=== PATIENT | male | born 1985 | race Caucasian/White ===

== ENCOUNTER 2025-02-21 14:38 | Outpatient (CLI) | payer OTHER, SELFPAY | END 2025-02-21 14:39 | disposition home or self-care (01) | LOC: LKVREF 14:41 | PROVIDERS: PCP Family Medicine; Visit Provider Family Medicine | DX: Z00.00 Encounter for general adult medical examination without abnormal findings (principal); R03.0 Elevated blood-pressure reading, without diagnosis of hypertension; E78.00 Pure hypercholesterolemia, unspecified | CPT/HCPCS: 80053; 80061; 82043; 82570 ==